=== PATIENT | male | born 1965 | race Caucasian/White ===

== ENCOUNTER 2018-07-19 13:21 | Emergency (ER) | payer MEDICAID, SELFPAY ==
[~2018-07-19] VITALS: Ht 182.9 cm; Wt 97.3 kg
[2018-07-19 13:36] VITALS: BP 144/81
[2018-07-19] MEDS ORDERED: LIDOCAINE-MPF 1%, 5ML INFIL ONE (14:00)
[2018-07-19] MEDS ORDERED: LIDOCAINE-MPF 1%, 5ML ONE (14:22)
--- NOTE | 2018-07-19 14:43 | NUR ---
XYLOCAINE PROVIDED TO JORGE ALBERTO RIVERA
--- NOTE | 2018-07-19 15:50 | NUR ---
AFTER WOUND DRAINED RIGHT FOREARM CLEAN, DRY DRESSING PLACED
== END 2018-07-19 15:53 | disposition home or self-care (01) ==
LOC: ED 15:47
DX: A60.01 Herpesviral infection of penis (principal); L02.413 Cutaneous abscess of right upper limb; N48.21 Abscess of corpus cavernosum and penis; F17.210 Nicotine dependence, cigarettes, uncomplicated
CPT/HCPCS: 10061; 99284